=== PATIENT | male | born 1985 | race African-American/Black ===

== ENCOUNTER 2019-09-30 11:55 | Emergency (ER) | payer MEDICAID ==
[~2019-09-30] VITALS: Ht 180.3 cm; Wt 59.9 kg
[~2019-09-30 11:55] MED LIST: ARIP2TAB3 PO; DULO20CA PO; FLUO10TA PO; OLAN10TA3 PO; TRAZ-182 PO
--- NOTE | 2019-09-30 12:02 | NUR ---
CAME IN FOR R SIDED HEAD PAIN AND THROAT PAIN FOR 2 DAYS. TO ER BED 11, HOOKED TO MONITOR, AOx4, NAD, AWAITING MD VILLAREAL.
--- NOTE | 2019-09-30 12:13 | NUR ---
PA FOSTER AT BEDSIDE
[2019-09-30] MEDS ORDERED: HYDROCODONE/APAP 5/325MG 1 EACH TABLET PO ONE (12:30)
[2019-09-30] MEDS ORDERED: HYDROCODONE/APAP 5/325MG 1 EACH TABLET ONE (12:32)
--- NOTE | 2019-09-30 12:36 | NUR ---
Patient discharged to home in stable condition. Written and verbal after care instructions given. Patient verbalizes understanding of instruction.
[2019-09-30 12:37] VITALS: BP 111/80
== END 2019-09-30 12:38 | disposition home or self-care (01) ==
LOC: ER 11:55
DX: J06.9 Acute upper respiratory infection, unspecified (principal); F20.0 Paranoid schizophrenia; F29 Unspecified psychosis not due to a substance or known physiological condition; F32.9 Major depressive disorder, single episode, unspecified; F10.10 Alcohol abuse, uncomplicated; Y90.9 Presence of alcohol in blood, level not specified; F17.200 Nicotine dependence, unspecified, uncomplicated; Z79.899 Other long term (current) drug therapy

== ENCOUNTER 2020-01-30 10:11 | Emergency (ER) | payer MEDICAID ==
[~2020-01-30] VITALS: Ht 180.3 cm; Wt 64.4 kg
[2020-01-30 10:15] VITALS: BP 145/89
== END 2020-01-30 10:32 | disposition home or self-care (01) ==
LOC: ER 10:11
DX: J06.9 Acute upper respiratory infection, unspecified (principal); Z79.899 Other long term (current) drug therapy

== ENCOUNTER 2020-02-25 14:42 | Emergency (ER) | payer MEDICAID ==
[~2020-02-25] VITALS: Ht 180.3 cm; Wt 65.8 kg
[2020-02-25 15:09] LABS: BASOPHILS # (AUTO) 0.1 /CMM (0.0-0.2); BASOPHILS % (AUTO) 0.6 % (0.0-2.0); EOSINOPHILS % (AUTO) 0.3 % (0.0-6.0); HEMATOCRIT 51 % (39-51); HEMOGLOBIN 17.1 g/dL (13.5-17.5); LYMPHOCYTES # (AUTO) 1.5 /CMM (0.8-4.8); LYMPHOCYTES % (AUTO) 17.3 % (20.0-44.0); MEAN CORPUSCULAR HGB CONC 34 g/dl (31.0-36.0); MEAN CORPUSCULAR VOLUME 100 fL (80-96); MONOCYTES % (AUTO) 11.5 % (2.0-12.0); NEUTROPHILS # (AUTO) 6.2 /CMM (1.8-8.9); NEUTROPHILS % (AUTO) 70.3 % (43.0-81.0); PLATELET COUNT (AUTO) 355 /CMM (150-450); RED BLOOD CELL COUNT(AUTO) 5.06 MIL/uL (4.5-6.0); WHITE BLOOD COUNT (AUTO) 8.9 K/uL (4.3-11.0)
[2020-02-25] MEDS ORDERED: LORAZEPAM INJ 2 MG/ML VIAL ONE ×3 (15:12→20:17)
[2020-02-25] MEDS ORDERED: OLANZAPINE 5 MG TABLET ONE (15:13)
[2020-02-25 15:17] LABS: CALCIUM, SERUM 9.3 mg/dL (8.5-10.1); CARBON DIOXIDE 22 mmol/L (21-32); CHLORIDE 98 mmol/L (98-107); CREATININE 1.6 mg/dL (0.6-1.3); GLUCOSE 126 mg/dL (74-106); POTASSIUM 3.9 mmol/L (3.5-5.1); SODIUM SERUM 136 mmol/L (136-145); UREA NITROGEN, BLOOD 12 mg/dL (7-18)
[2020-02-25 15:23] LABS: ALANINE AMINOTRANSFERASE 22 U/L (12-78); ALBUMIN 4.9 g/dL (3.4-5.0); ALCOHOL, BLOOD < 3 mg/dL (0-0); ALKALINE PHOSPHATASE 82 U/L (46-116); ASPARTATE AMINOTRANSFERASE 29 U/L (15-37); BILIRUBIN,DIRECT 0.2 mg/dL (0.0-0.2); BILIRUBIN,TOTAL 0.8 mg/dL (0.2-1.0); SALICYLATE 5.5 mg/dL (2.8-20.0)
[2020-02-25 15:24] LABS: ACETAMINOPHEN < 2 ug/ml (10-30)
[2020-02-25] MEDS ORDERED: OLANZAPINE 5 MG TABLET PO ONE (15:30)
[2020-02-25] MEDS ORDERED: LORAZEPAM INJ 2 MG/ML VIAL IM ONE ×3 (15:30→20:30)
--- NOTE | 2020-02-25 15:49 | NUR ---
Patient awake noted able to ambulated to bathroom he follows command urine obtained and send to lab
[2020-02-25] MEDS ORDERED: diphenhydrAMINE HCL 50 MG/ML VIAL ONE ×2 (16:29→20:16)
[2020-02-25] MEDS ORDERED: diphenhydrAMINE HCL 50 MG/ML VIAL IM ONE ×2 (16:30→20:30)
--- NOTE | 2020-02-25 16:38 | NUR ---
Patient awake standing @ bedside talkative non sense directed to bed and medication given continue to monitor .
--- NOTE | 2020-02-25 16:38 | NUR ---
FAXED CLINICALS TO [facility].
--- NOTE | 2020-02-25 17:02 | NUR ---
FAXED CLINICALS TO [facility].
--- NOTE | 2020-02-25 17:32 | NUR ---
Patient is calm no further agitation noted continue to monitor
[2020-02-25] MEDS ORDERED: NICOTINE PATCH (14MG) 14 MG PATCH.TD24 TD STA (18:07)
[2020-02-25] MEDS ORDERED: OLANZAPINE 10 MG VIAL IM ONE ×2 (18:22→18:30)
--- NOTE | 2020-02-25 18:30 | NUR ---
Patient awake trying getting out and smoke encourage and advise to stay in bed ,erika @ bedside
--- NOTE | 2020-02-25 19:30 | NUR ---
PT IS AWAKE AND RESTING COMFORTABLY. VSS. PLACED ON MONITOR AND PULSE OX. WATCHING TV.
--- NOTE | 2020-02-25 21:25 | NUR ---
PT ACCEPTED AT [facility] PHONE NUMBER FOR REPORT ASK TO SPEAK WITH THE CHARGE NURSE
--- NOTE | 2020-02-25 21:37 | NUR ---
CALLED [facility] ETA [phone].
--- NOTE | 2020-02-25 21:48 | NUR ---
REPORT GIVEN TO AJ FOR [facility]
[2020-02-25 22:33] VITALS: BP 124/73
--- NOTE | 2020-02-25 22:33 | NUR ---
REPORT GIVEN TO [facility] FOR TRANSPORT.
--- NOTE | 2020-02-25 22:50 | NUR ---
PT TRANSFERED TO [facility].
== END 2020-02-25 22:51 ==
LOC: ER 14:45
DX: F23 Brief psychotic disorder (principal); R45.851 Suicidal ideations; F12.10 Cannabis abuse, uncomplicated; F32.9 Major depressive disorder, single episode, unspecified; F17.200 Nicotine dependence, unspecified, uncomplicated; Z79.899 Other long term (current) drug therapy
CPT/HCPCS: 36415; 80048; 80076; 80305; 80307; 80329; 85025; 96372 ×2; 99285; G0480; J1200 ×2; J2060 ×3; J3490

== ENCOUNTER 2020-03-14 21:06 | Emergency (ER) | payer MEDICAID ==
--- NOTE | 2020-03-14 21:33 | NUR ---
CALLED TO TRIAGE, NOT IN WAITING ROOM
--- NOTE | 2020-03-14 22:06 | NUR ---
CALLED TO TRIAGE, PT DID NOT WANT TO BE SEEN
== END 2020-03-14 22:24 | disposition left against medical advice (07) ==
LOC: ER 21:06
DX: Z53.21 Procedure and treatment not carried out due to patient leaving prior to being seen by health care provider (principal)

== ENCOUNTER 2020-06-30 00:12 | Emergency (ER) | payer OTHER, MEDICAID ==
[~2020-06-30] VITALS: Ht 180.3 cm; Wt 54.4 kg
[2020-06-30 00:12] VITALS: BP 133/60
--- NOTE | 2020-06-30 00:28 | NUR ---
pt cleared for discharge per dr. lynn pt in [facility] custody, ambulatory with steady gait. vss. provided with Written and verbal after care instructions given. Patient verbalizes understanding of instruction.
== END 2020-06-30 00:30 ==
LOC: ER 00:13
DX: F32.9 Major depressive disorder, single episode, unspecified (principal); F29 Unspecified psychosis not due to a substance or known physiological condition; F60.0 Paranoid personality disorder; Z79.899 Other long term (current) drug therapy